=== PATIENT | female | born 1980 | race Caucasian/White ===

== ENCOUNTER → 2022-01-01 | Day surgery (SDC) | payer BC, MEDICAID ==
[~2022-01-01] MED LIST: Acetaminophen/HYDROcodone 325-5 MG Tab PO PRN; Albuterol 0.083% 2.5 MG/3 ML Neb Soln NEB PRN; HYDROmorphone 1 MG/ML Syringe IVPUSH PRN; Ketorolac 30 MG/ML SDV IVPUSH ONE; Lactated Ringers 1,000 ML IV SCH; Lidocaine 1% with EPINEPHrine 1:100,000 50 ML MDV ONE; Metoclopramide 10 MG/2 ML SDV IVPUSH PRN; Midazolam 1 MG/ML 2 ML SDV ONE; Morphine 2 MG/ML SYRINGE IVPUSH PRN; Naloxone 0.4 MG/ML SDV IVPUSH PRN; Ondansetron 4 MG/2 ML SDV IVPUSH PRN; Phenylephrine HCl In 0.9% NaCl 1 MG/10 ML Vial ONE; Propofol 200 MG/20 ML SDV ONE; fentaNYL 100 MCG/2 ML SDV ONE; fentaNYL 50 MCG/ML SDV IVPUSH PRN
[2022-01-01 10:16] LABS: CARBON DIOXIDE,CO2 22.9 mmol/L (21.0-32.0); POTASSIUM,K 3.7 mmol/L (3.5-5.1)
== END | disposition home or self-care (01) ==
LOC: MW.SDS 09:05
PROVIDERS: ATTEND Obstetrics & Gynecology
DX: N92.0 Excessive and frequent menstruation with regular cycle (principal); N94.6 Dysmenorrhea, unspecified; Q81.9 Epidermolysis bullosa, unspecified; F32.A Depression, unspecified; F90.9 Attention-deficit hyperactivity disorder, unspecified type; F41.9 Anxiety disorder, unspecified; K21.9 Gastro-esophageal reflux disease without esophagitis; F17.200 Nicotine dependence, unspecified, uncomplicated; Z79.899 Other long term (current) drug therapy; Z98.890 Other specified postprocedural states
CPT/HCPCS: 36415; 58558; 80053; 81025; 85027; 86850; 86900; 86901; J0131; J2250; J2704; J3010; J7120; J3490

== ENCOUNTER 2022-03-19 06:13 | Day surgery (SDC) | payer MEDICAID ==
[2022-03-19] MEDS ORDERED: Scopolamine 1.5 MG Transdermal Patch TOP ONE (06:30)
[2022-03-19 07:18] LABS: CARBON DIOXIDE,CO2 22.8 mmol/L (21.0-32.0); POTASSIUM,K 3.5 mmol/L (3.5-5.1)
[2022-03-19] MEDS ORDERED: HYDROmorphone 1 MG/ML Syringe IVPUSH PRN (07:30)
[2022-03-19] MEDS ORDERED: Ondansetron 4 MG/2 ML SDV IVPUSH PRN ×2 (07:30→10:34)
[2022-03-19] MEDS ORDERED: Albuterol 0.083% 2.5 MG/3 ML Neb Soln NEB PRN (07:30)
[2022-03-19] MEDS ORDERED: Morphine 2 MG/ML SYRINGE IVPUSH PRN (07:30)
[2022-03-19] MEDS ORDERED: fentaNYL 50 MCG/ML SDV IVPUSH PRN (07:30)
[2022-03-19] MEDS ORDERED: Metoclopramide 10 MG/2 ML SDV IVPUSH PRN (07:30)
[2022-03-19] MEDS ORDERED: Naloxone 0.4 MG/ML SDV IVPUSH PRN (07:30)
[2022-03-19] MEDS ORDERED: Sugammadex Sodium 200 MG/2 ML VIAL ONE (07:37)
[2022-03-19] MEDS ORDERED: Lidocaine 2% 5 ML SDV ONE (07:37)
[2022-03-19] MEDS ORDERED: fentaNYL 100 MCG/2 ML SDV ONE (07:37)
[2022-03-19] MEDS ORDERED: Methylene Blue 50 MG/10 ML Ampule ONE (07:37)
[2022-03-19] MEDS ORDERED: Propofol 200 MG/20 ML SDV ONE (07:37)
[2022-03-19] MEDS ORDERED: Ketorolac 30 MG/ML SDV ONE (07:37)
[2022-03-19] MEDS ORDERED: Rocuronium 100 MG/10 ML MDV ONE (07:37)
[2022-03-19] MEDS ORDERED: Ondansetron 4 MG/2 ML SDV ONE (07:37)
[2022-03-19] MEDS ORDERED: Dexamethasone 4 MG/ML 5 ML MDV ONE (07:37)
[2022-03-19] MEDS ORDERED: Bupivacaine 0.25% 30 ML SDV ONE ×2 (07:38→07:43)
[2022-03-19] MEDS ORDERED: Ropivacaine 0.5% 5 MG/ML 30 ML SDV ONE (07:43)
[2022-03-19] MEDS: Lactated Ringers 1,000 ML IV SCH ×3 (07:45→23:57)
[2022-03-19] MEDS ORDERED: ceFAZolin 1 GM Vial ONE (08:22)
[2022-03-19] MEDS ORDERED: HYDROmorphone 2 MG/ML Syringe ONE (10:02)
[2022-03-19] MEDS ORDERED: Lidocaine 2% 11 ML Jelly Filled Syringe ONE (10:16)
[2022-03-19] MEDS ORDERED: Promethazine 25 MG/ML SDV IM PRN (10:34)
[2022-03-19] MEDS ORDERED: Acetaminophen/oxyCODONE 325-5 MG Tab PO PRN (10:34)
[2022-03-19] MEDS: Morphine 4 MG/ML Syringe IVPUSH PRN ×2 (11:46→14:42)
[2022-03-19] MEDS ORDERED: Lidocaine 2% 11 ML Jelly Filled Syringe MUCMEM SCH (12:00)
[2022-03-19] MEDS: Acetaminophen/oxyCODONE 325-5 MG Tab PO PRN ×3 (12:57→21:17)
[2022-03-19] MEDS: Ketorolac 30 MG/ML SDV IVPUSH PRN (20:16)
[2022-03-19] MEDS ORDERED: QUEtiapine 25 MG Tab PO SCH (23:28)
[2022-03-19] MEDS: busPIRone 5 MG Tab PO SCH (23:35)
[2022-03-20] MEDS: Acetaminophen/oxyCODONE 325-5 MG Tab PO PRN ×3 (04:17→14:00)
[2022-03-20] MEDS: Ketorolac 30 MG/ML SDV IVPUSH PRN ×2 (04:36→12:40)
[2022-03-20] MEDS ORDERED: busPIRone 5 MG Tab PO SCH (06:00)
[2022-03-20] MEDS: busPIRone 5 MG Tab PO SCH ×2 (06:16→14:00)
[2022-03-20 06:24] LABS: CARBON DIOXIDE,CO2 26.3 mmol/L (21.0-32.0); POTASSIUM,K 3.5 mmol/L (3.5-5.1)
[2022-03-20] MEDS: Albuterol/Ipratropium 3.0-0.5 MG/3 ML Neb Soln NEB SCH ×2 (09:50→13:39)
[2022-03-20] MEDS ORDERED: QUEtiapine 25 MG Tab PO SCH (18:00)
[2022-03-20] MEDS ORDERED: buPROPion 150 MG Tab.SR PO SCH (21:00)
== END 2022-03-20 15:30 | disposition home or self-care (01) ==
LOC: MW.SDS 06:13 → MW.OB 10:51 → MW.SDS 03-20 15:30
PROVIDERS: ATTEND Obstetrics & Gynecology
DX: D25.1 Intramural leiomyoma of uterus (principal); N80.03 Adenomyosis of the uterus; N72 Inflammatory disease of cervix uteri; N60.02 Solitary cyst of left breast; N60.01 Solitary cyst of right breast; F41.9 Anxiety disorder, unspecified; F90.9 Attention-deficit hyperactivity disorder, unspecified type; F33.1 Major depressive disorder, recurrent, moderate; F17.210 Nicotine dependence, cigarettes, uncomplicated; Z98.890 Other specified postprocedural states; Z79.899 Other long term (current) drug therapy; Z20.822 Contact with and (suspected) exposure to COVID-19
CPT/HCPCS: 36415; 58552; 80053; 84703; 85025; 86850; 86900; 86901; 87635; 94640; A9270; J0131; J0690; J1100; J1170; J1885; J2270; J2704; J2795; J3010; J3490; J7120; J2405; J7620-GY; U0002

== ENCOUNTER 2024-01-16 11:39 | Day surgery (SDC) | payer BC, MEDICAID ==
[2024-01-16] MEDS ORDERED: Lidocaine 2% 5 ML SDV ONE (12:10)
[2024-01-16] MEDS ORDERED: propofoL 500 MG/50 ML 50 ML ONE (12:10)
[2024-01-16] MEDS: Lactated Ringers 1,000 ML IV SCH (12:24)
== END 2024-01-16 13:19 | disposition home or self-care (01) ==
LOC: MW.SDS 11:39
PROVIDERS: ATTEND Surgery
DX: R19.4 Change in bowel habit (principal); K44.9 Diaphragmatic hernia without obstruction or gangrene; K21.9 Gastro-esophageal reflux disease without esophagitis; E03.9 Hypothyroidism, unspecified; F32.A Depression, unspecified; F41.9 Anxiety disorder, unspecified
CPT/HCPCS: 43239; 45380; J2704; J7120; 00813; J3490

== ENCOUNTER 2024-03-17 06:22 | Day surgery (SDC) | payer MEDICAID ==
[~2024-03-17 06:22] MED LIST changes: -Acetaminophen/HYDROcodone 325-5 MG Tab PO PRN; -Albuterol 0.083% 2.5 MG/3 ML Neb Soln NEB PRN; -HYDROmorphone 1 MG/ML Syringe IVPUSH PRN; -Ketorolac 30 MG/ML SDV IVPUSH ONE; -Lactated Ringers 1,000 ML IV SCH; -Lidocaine 1% with EPINEPHrine 1:100,000 50 ML MDV ONE; -Metoclopramide 10 MG/2 ML SDV IVPUSH PRN; -Midazolam 1 MG/ML 2 ML SDV ONE; -Morphine 2 MG/ML SYRINGE IVPUSH PRN; -Naloxone 0.4 MG/ML SDV IVPUSH PRN; -Ondansetron 4 MG/2 ML SDV IVPUSH PRN; -Phenylephrine HCl In 0.9% NaCl 1 MG/10 ML Vial ONE; -Propofol 200 MG/20 ML SDV ONE; +Sodium Chloride 0.9% 10 ML Syringe FLUSH PRN; +Sodium Chloride 0.9% 2.5 ML Syringe FLUSH PRN; +Sodium Chloride 0.9% 20 ML SDV IV PRN; +ceFAZolin 2 GM in Sodium Chloride 0.9% 50 ML IV ONE; -fentaNYL 100 MCG/2 ML SDV ONE; -fentaNYL 50 MCG/ML SDV IVPUSH PRN
[2024-03-17] MEDS: Lactated Ringers 1,000 ML IV SCH (07:05)
[2024-03-17] MEDS ORDERED: Ketorolac 30 MG/ML SDV ONE (07:15)
[2024-03-17] MEDS ORDERED: Propofol 200 MG/20 ML SDV ONE (07:15)
[2024-03-17] MEDS ORDERED: Sugammadex Sodium 200 MG/2 ML VIAL IV ONE (07:15)
[2024-03-17] MEDS ORDERED: Ondansetron 4 MG/2 ML SDV ONE (07:15)
[2024-03-17] MEDS ORDERED: Lidocaine 2% 5 ML SDV ONE (07:15)
[2024-03-17] MEDS ORDERED: Rocuronium Bromide 50 MG/5 ML Syringe ONE ×2 (07:15→11:10)
[2024-03-17] MEDS ORDERED: Dexamethasone 4 MG/ML 5 ML MDV ONE (07:15)
[2024-03-17] MEDS ORDERED: fentaNYL 100 MCG/2 ML SDV ONE ×2 (07:15→11:56)
[2024-03-17] MEDS ORDERED: dexmedeTOMIDine HCl 200 MCG/2 ML SDV ONE (07:17)
[2024-03-17] MEDS ORDERED: Sodium Chloride 0.9% 20 ML ONE (07:17)
[2024-03-17] MEDS ORDERED: Ropivacaine 0.5% 5 MG/ML 30 ML SDV ONE (07:18)
[2024-03-17] MEDS ORDERED: Bupivacaine 0.5% 30 ML SDV ONE (07:25)
[2024-03-17] MEDS ORDERED: Morphine 2 MG/ML SYRINGE IVPUSH PRN (07:37)
[2024-03-17] MEDS ORDERED: Phenylephrine HCl In 0.9% NaCl 1 MG/10 ML Syringe IVPUSH PRN (07:37)
[2024-03-17] MEDS ORDERED: Albuterol 0.083% 2.5 MG/3 ML Neb Soln NEB PRN (07:37)
[2024-03-17] MEDS ORDERED: Ondansetron 4 MG/2 ML SDV IVPUSH PRN (07:37)
[2024-03-17] MEDS ORDERED: Naloxone 0.4 MG/ML SDV IVPUSH PRN (07:37)
[2024-03-17] MEDS ORDERED: fentaNYL 50 MCG/ML SDV IVPUSH PRN (07:37)
[2024-03-17] MEDS ORDERED: Metoclopramide 10 MG/2 ML SDV IVPUSH PRN (07:37)
[2024-03-17] MEDS ORDERED: Midazolam 1 MG/ML 2 ML SDV ONE (09:21)
[2024-03-17] MEDS ORDERED: ceFAZolin 2 GM Vial ONE (10:48)
[2024-03-17] MEDS ORDERED: Phenylephrine HCl In 0.9% NaCl 1 MG/10 ML Syringe ONE (11:02)
[2024-03-17] MEDS: HYDROmorphone 1 MG/ML Syringe IVPUSH PRN (12:42)
== END 2024-03-17 14:20 | disposition home or self-care (01) ==
LOC: MW.SDS 06:22
PROVIDERS: ATTEND Surgery
DX: K80.10 Calculus of gallbladder with chronic cholecystitis without obstruction (principal); K21.9 Gastro-esophageal reflux disease without esophagitis; K76.0 Fatty (change of) liver, not elsewhere classified; Z87.891 Personal history of nicotine dependence; Z79.899 Other long term (current) drug therapy
CPT/HCPCS: 47562; 64488; J0131; J0665; J0690; J1100; J1171; J1885; J2250; J2371; J2704; J2795; J3010; J7120; 00790; J2405; J3490